=== PATIENT | female | born 1975 | race African-American/Black ===

== ENCOUNTER 2017-07-31 08:04 | Emergency (ER) | payer OTHER ==
[~2017-07-31] VITALS: Ht 167.6 cm; Wt 72.6 kg
[~2017-07-31 08:04] MED LIST: AZIT500T2 PO; METR500T8 PO; NAPR500T4 PO; NICO1PAT2 TD; PROVENTIL HFA6.7 GM IH; TRAZ50TA15 PO; VENTOLIN HFA18 GM INH
[2017-07-31 08:25] VITALS: BP 126/80
--- NOTE | 2017-07-31 08:48 | PHYS DOC ---
Past Medical History Past Medical History: Anxiety, Asthma, Seizure Additional Past Medical Histor: Seasonal rhinitis, PTSD, Chronic bronchitis, CERVICAL STENOSIS Past Surgical History: Tubal ligation, Other Additional Past Surgical Histo: HERNIA REPAIR Alcohol Use: None Drug Use: None Adult General Chief Complaint Chief Complaint: COUGH [facility] HPI Patient is a pleasant 41-year-old -[place] female with history of PTSD, prior seizure disorder who presents with a cough that is nonproductive that is gotten progressively worse over the last 6 days. Patient works in a factory and is noted increased dry cough over the last 2-3 days has now become productive. She has had subjective fevers and chills but nothing measured. She has taken no medications to treat her symptoms. She does complain of bilateral ear discomfort but no hearing loss or tenderness, she has a clear rhinorrhea no sore throat and no neck stiffness. Patient denies any recent travel outside the country or recent anabiotic use. She is a nonsmoker. Review of Systems Review of Systems Constitutional: Subjective fevers and chills nothing measured Eyes: Denies change in visual acuity, redness, or eye pain [] HENT: This patient has had nasal congestion without sore throat Respiratory: She has had a progressive productive cough without shortness of breath Cardiovascular: No additional information not addressed in HPI [] GI: Denies abdominal pain, nausea, vomiting, bloody stools or diarrhea [] : Denies dysuria or hematuria [] Musculoskeletal: Denies back pain or joint pain [] Integument: Denies rash or skin lesions [] Neurologic: Denies headache, focal weakness or sensory changes [] Endocrine: Denies polyuria or polydipsia [] All other systems were reviewed and found to be within normal limits, except as documented in this note. Allergies Allergies Allergies Coded Allergies Type Severity Reaction Last Updated Verified No Known Drug Allergies 05/30/14 No Physical Exam Physical Exam Constitutional: Well developed, well nourished, no acute distress, non-toxic appearance. [] HENT: Normocephalic, atraumatic, bilateral external ears normal, oropharynx moist, mild erythema but no oral exudates, nose normal. [] Eyes: PERRLA, EOMI, conjunctiva normal, no discharge. [] Neck: Normal range of motion, no tenderness, supple, no stridor. No anterior cervical lymphadenopathy[] Cardiovascular:Heart rate regular rhythm, no murmur [] Lungs & Thorax: Bilateral breath sounds clear to auscultation [] Skin: Warm, dry, no erythema, no rash. [] Neurologic: Alert and oriented X 3, normal speech [] Psychologic: Affect normal, judgement normal, mood normal. [] Current Patient Data Vital Signs Vital Signs Date Time Temp Pulse Resp B/P (MAP) Pulse Ox O2 Delivery O2 Flow Rate FiO2 07/31/17 08:25 98.1 100 18 99 Room Air 98.1 EKG EKG [] Radiology/Procedures Radiology/Procedures [] [facility] [address] [place] [address] IMAGING REPORT Signed PATIENT: DARIO GEORGE ACCOUNT: [id number] : 1975 LOCATION: ER AGE: 41 SEX: F EXAM STATUS: REG ER ORD. PHYSICIAN: SHERRI GARCIA MD REASON: cough PROCEDURE: CHEST PA & LATERAL Indication: Cough for one week. Technique: Two-view chest radiograph was obtained. Comparison is from September 21, 2012. Findings: The lungs are clear. The cardiopulmonary silhouette is within normal limits. There is no pleural effusion. The bony structures are intact. Impression: No acute thoracic findings. DICTATED and SIGNED BY: LUDIN RODRIGUEZ MD DATE: 07/31/17 0852 CC: SHERRI GARCIA MD; NO PCP ~ Course & Med Decision Making Course & Med Decision Making Pertinent Labs and Imaging studies reviewed. (See chart for details) []Patient presents with a productive cough and chills and fevers at home nothing measured. Patient will be screened for pneumonia versus URI symptoms. She has no myalgias no headache no neck stiffness doubt meningitis or influenza Patient's chest x-ray does not demonstrate any signs of infection patient is wheezing on exam I'll provide her supportive medications for her URI-like symptoms. Asked to return to her primary care doctor for any continued symptoms if not improved with supportive care. I will also give her a complete off to recuperate from her illness Dragon Disclaimer Dragon Disclaimer This electronic medical record was generated, in whole or in part, using a voice recognition dictation system. Departure Departure Impression: Primary Impression: Cough Additional Impression: URI (upper respiratory infection) Disposition: 01 HOME, SELF-CARE Condition: IMPROVED Referrals: UNKNOWN PCP NAME (PCP) Patient Instructions: Upper Respiratory Infection, Adult Additional Instructions: discharge: I've spoken with the patient and/or caregivers. I've explained the patient's condition, diagnosis and treatment plan based on information available to me at this time. I've answered the patient's and/or caregivers questions and addressed any concerns. The patient and/or caregivers have a good understanding the patient's diagnosis, condition and treatment plan as can be expected at this point. Vital signs have been stabilized. The patient's condition is stable for discharge from the emergency department. The patient will pursue further outpatient evaluation with her primary care provider or other designated consulting physician as outlined in the discharge instructions. Patient and/or caregivers are agreeable to this plan of care and follow-up instructions have been explained in detail. The patient and/or caregivers have received these instructions in written format and expressed understanding of these discharge instructions. The patient and her caregivers are aware that if any significant change in condition or worsening of symptoms should prompt him to immediately return to this of the closest emergency department. If an emergent department is not readily available I would encourage him to call 911. Scripts Naproxen (NAPROSYN) 500 Mg Tablet 1 TAB PO BID, #14 TAB 1 Refill Prov: SHERRI GARCIA MD 07/31/17 Guaifenesin/Dextromethorphan (MUCINEX DM ER 600-30 MG TABLET) 1 Each Tab.er.12h 1 TAB PO PRN Q12HRS, #20 TAB Prov: SHERRI GARCIA MD 07/31/17 Fluticasone Propionate (Flonase Allergy Relief) 9.9 Ml [place].susp 2 SPRAYS NS DAILY for 7 Days, BOTTLE Prov: SHERRI GARCIA MD 07/31/17 Albuterol Sulfate (PROAIR HFA INHALER) 8.5 Gm Hfa.aer.ad 1 PUFF INH PRN Q6HRS Y for SHORTNESS OF BREATH for 5 Days, INHALER 0 Refills Prov: SHERRI GARCIA MD 07/31/17 Problem Qualifiers SHERRI GARCIA MD Jul 31, 2017 08:48
--- NOTE | 2017-07-31 08:56 | RAD ---
Indication: Cough for one week. Technique: Two-view chest radiograph was obtained. Comparison is from September 21, 2012. Findings: The lungs are clear. The cardiopulmonary silhouette is within normal limits. There is no pleural effusion. The bony structures are intact. Impression: No acute thoracic findings.
[2017-07-31] MEDS ORDERED: FLUT9.9S NS (09:12)
[2017-07-31] MEDS ORDERED: NAPR-683 PO (09:12)
[2017-07-31] MEDS ORDERED: GUAI-108 PO (09:12)
[2017-07-31] MEDS ORDERED: PROAIR HFA8.5 GM INH (09:12)
== END 2017-07-31 09:28 | disposition home or self-care (01) ==
LOC: ER 08:04
DX: J06.9 Acute upper respiratory infection, unspecified (principal); F41.9 Anxiety disorder, unspecified; J45.909 Unspecified asthma, uncomplicated; F43.10 Post-traumatic stress disorder, unspecified; G40.909 Epilepsy, unspecified, not intractable, without status epilepticus
CPT/HCPCS: 71020; 99284-25

== ENCOUNTER 2018-01-06 13:38 | Emergency (ER) | payer OTHER ==
[2018-01-06 14:20] LABS: URINE HCG POC HCG NEGATIVE (Negative)
[2018-01-06 14:36] LABS: BILIRUBIN,URINE NEGATIVE (NEG); CLARITY,URINE CLEAR; COLOR,URINE YELLOW; GLUCOSE,URINE NEGATIVE (NEG); NITRITE,URINE NEGATIVE (NEG); PROTEIN,URINE NEGATIVE (NEG-TRACE)
[2018-01-06 14:40] LABS: BASO % 1 % (0-3); EOS % 1 % (0-3); HEMOGLOBIN 13.3 g/dL (12.0-15.5); LYMPH # 1.4 x10^3/uL (1.0-4.8); LYMPH % 55 % (24-48); MEAN CORPUSCULAR HEMOGLOBIN 31 pg (25-35); MEAN CORPUSCULAR HGB CONC 34 g/dL (31-37); MEAN CORPUSCULAR VOLUME 90 fL (79-100); MONO # 0.3 x10^3/uL (0.0-1.1); MONO % 13 % (0-9); NEUT # 0.8 x10^3uL (1.8-7.7); NEUT % 31 % (31-73); PLATELET COUNT 161 x10^3/uL (140-400); RED BLOOD COUNT 4.33 x10^6/uL (3.50-5.40); RED CELL DISTRIBUTION WIDTH 13.4 % (11.5-14.5); WHITE BLOOD COUNT 2.6 x10^3/uL (4.0-11.0)
[2018-01-06 14:41] LABS: ADD MAN DIFF? YES; BARBITURATES NEG (NEG); BENZODIAZEPINES NEG (NEG); CANNABINOIDS POS (NEG); COCAINE NEG (NEG); METHADONE NEG (NEG); OPIATES NEG (NEG); PHENCYCLIDINE POS (NEG)
[2018-01-06 14:42] LABS: AMPHETAMINE/METHAMPHETAMINE NEG (NEG); ETHANOL, URINE NEG (NEG)
[2018-01-06 14:50] LABS: ANION GAP 9 (6-14); BLOOD UREA NITROGEN 8 mg/dL (7-20); BUN/CREATININE RATIO 11 (6-20); CALCIUM 8.5 mg/dL (8.5-10.1); CARBON DIOXIDE 24 mmol/L (21-32); CHLORIDE 105 mmol/L (98-107); CREATININE 0.7 mg/dL (0.6-1.0); GLUCOSE 91 mg/dL (70-99); POTASSIUM 3.6 mmol/L (3.5-5.1); SODIUM 138 mmol/L (136-145)
[2018-01-06 14:51] LABS: ETHANOL < 10 mg/dL (0-10)
[2018-01-06 14:55] LABS: BACTERIA,URINE 0 /HPF (0-FEW); RBC,URINE 0 /HPF (0-2); SQUAMOUS EPITHELIAL CELL,UR MANY /LPF
[2018-01-06 14:56] LABS: ALBUMIN 3.3 g/dL (3.4-5.0); ALBUMIN/GLOBULIN RATIO 0.8 (1.0-1.7); ALK PHOS 66 U/L (46-116); ALT (SGPT) 33 U/L (14-59); AST (SGOT) 18 U/L (15-37); TOTAL BILIRUBIN 0.5 mg/dL (0.2-1.0); TOTAL PROTEIN 7.4 g/dL (6.4-8.2)
[2018-01-06 16:33] LABS: % ATYL 8 % (0-0); % BANDS 3 % (0-9); % LYMPHS 56 % (24-48); % MONOS 7 % (0-10); % SEGS 26 % (35-66); PLT ESTIMATE ADEQUATE (ADEQUATE)
== END 2018-01-06 16:57 | disposition home or self-care (01) ==
LOC: ER 13:38
DX: F44.5 Conversion disorder with seizures or convulsions (principal); R20.2 Paresthesia of skin; F43.10 Post-traumatic stress disorder, unspecified; F41.9 Anxiety disorder, unspecified; J45.909 Unspecified asthma, uncomplicated; F17.210 Nicotine dependence, cigarettes, uncomplicated; F12.10 Cannabis abuse, uncomplicated
CPT/HCPCS: 36415; 70450; 80053; 80307; 81001; 81025; 85007; 85025; 87086; 93005; 99285; G0480

== ENCOUNTER 2018-06-11 06:46 | Emergency (ER) | payer OTHER ==
[~2018-06-11] VITALS: Ht 162.6 cm; Wt 64.0 kg
[~2018-06-11 06:46] MED LIST changes: +FLUT9.9S NS; +GUAI-108 PO; +NAPR-514 PO; +NAPR-683 PO; -NAPR500T4 PO; +PROAIR HFA8.5 GM INH; +TRAZ-85 PO; -TRAZ50TA15 PO
[2018-06-11 07:17] VITALS: BP 134/78
[2018-06-11] MEDS ORDERED: HYDROcodone/APAP 5/325MG 1 TAB TABLET PO ONE (07:30)
[2018-06-11 07:52] LABS: BASO % 1 % (0-3); EOS % 1 % (0-3); HEMOGLOBIN 14.4 g/dL (12.0-15.5); LYMPH # 1.2 x10^3/uL (1.0-4.8); LYMPH % 34 % (24-48); MEAN CORPUSCULAR HEMOGLOBIN 32 pg (25-35); MEAN CORPUSCULAR HGB CONC 35 g/dL (31-37); MEAN CORPUSCULAR VOLUME 90 fL (79-100); MONO # 0.3 x10^3/uL (0.0-1.1); MONO % 8 % (0-9); NEUT % 56 % (31-73); PLATELET COUNT 186 x10^3/uL (140-400); RED BLOOD COUNT 4.54 x10^6/uL (3.50-5.40); RED CELL DISTRIBUTION WIDTH 13.4 % (11.5-14.5); WHITE BLOOD COUNT 3.6 x10^3/uL (4.0-11.0)
[2018-06-11 08:04] LABS: CALCIUM 9.5 mg/dL (8.5-10.1); CREATININE 0.7 mg/dL (0.6-1.0)
[2018-06-11 08:07] LABS: PREG TEST PT QUAL NEGATIVE (NEG)
[2018-06-11 08:10] LABS: ALBUMIN 3.7 g/dL (3.4-5.0); ALBUMIN/GLOBULIN RATIO 0.8 (1.0-1.7); TOTAL BILIRUBIN 0.3 mg/dL (0.2-1.0); TOTAL PROTEIN 8.4 g/dL (6.4-8.2)
[2018-06-11] MEDS ORDERED: IBUPROFEN 600 MG TABLET. PO ONE (09:00)
[2018-06-11] MEDS ORDERED: CYCL10TA2 PO (09:36)
[2018-06-11] MEDS ORDERED: HYDR-2758 PO (09:36)
[2018-06-11] MEDS ORDERED: PRED50TA PO (09:40)
--- NOTE | 2018-06-11 09:53 | RAD ---
Lumbar spine, 3 views, 06/11/2018: HISTORY: Pain radiating down the right leg The lumbar vertebral heights and intervertebral disc spaces are well-maintained. No fracture or dislocation is identified. The paraspinous soft tissues are unremarkable. IMPRESSION: No acute bony abnormality is detected. Electronically signed by: Rey Linares MD (06/11/2018 9:50 AM) [facility]
--- NOTE | 2018-06-11 12:14 | PHYS DOC ---
Past Medical History Past Medical History: Anxiety, Asthma, Seizure, Other Additional Past Medical Histor: chronic pain,PTSD,Chronic bronchitis,CERVICAL/ SPINAL STENOSIS, Past Surgical History: Tubal ligation, Other Additional Past Surgical Histo: HERNIA REPAIR Alcohol Use: None Drug Use: None Adult General Chief Complaint Chief Complaint: LOWER EXT PAIN HPI HPI Patient is a 42 year old female who presents with chronic right leg pain. Patient reports diffuse leg, thigh pain, tenderness today. States she has had intermittent right leg pain from for several years. Pain is worse with palpation , movement. Patient also reports low back pain. Denies recent fall, trauma or repetitive strain injury. Denies motor weakness or loss of sensation of right leg. No bowel or bladder incontinence. No other acute symptoms or complaints. [] Review of Systems Review of Systems Review symptoms as per history of present illness. All other review symptoms are negative.[] All other systems were reviewed and found to be within normal limits, except as documented in this note. Current Medications Current Medications Current Medications Medications (Trade) Dose Ordered Sig/Alex Start Time Stop Time Status Last Admin Dose Admin Acetaminophen/ Hydrocodone Bitart (Lortab 5/325) 1 tab 1X ONCE 06/11/18 07:30 06/11/18 07:31 DC 06/11/18 07:50 1 TAB Ibuprofen (Motrin) 600 mg 1X ONCE 06/11/18 09:00 06/11/18 09:01 DC 06/11/18 09:06 600 MG Allergies Allergies Allergies Coded Allergies Type Severity Reaction Last Updated Verified No Known Drug Allergies 05/30/14 No Physical Exam Physical Exam Constitutional: Well developed, well nourished, no acute distress, non-toxic appearance. [] HENT: Normocephalic, atraumatic, bilateral external ears normal, oropharynx moist, nose normal. [] Eyes: PERRLA, EOMI, conjunctiva normal. [] Neck: Normal range of motion, no tenderness. [] Cardiovascular:Heart rate regular rhythm, no murmur [] Lungs & Thorax: Bilateral breath sounds clear to auscultation [] Abdomen: Bowel sounds normal, soft, no tenderness. [] Skin: Warm, dry, no erythema, no rash. [] Back: No midline spinal tenderness. [] Extremities: No tenderness, no edema. [] Neurologic: Alert and oriented X 3, normal motor function, normal sensory function, no focal deficits noted. [] Psychologic: Affect, anxious. [] Current Patient Data Vital Signs Vital Signs Date Time Temp Pulse Resp B/P (MAP) Pulse Ox O2 Delivery O2 Flow Rate FiO2 06/11/18 07:17 98.6 84 20 134/78 (96) 96 Room Air 98.6 Lab Values Laboratory Tests Test 06/11/18 07:45 White Blood Count 3.6 x10^3/uL (4.0-11.0) L Red Blood Count 4.54 x10^6/uL (3.50-5.40) Hemoglobin 14.4 g/dL (12.0-15.5) Hematocrit 41.0 % (36.0-47.0) Mean Corpuscular Volume 90 fL (79-100) Mean Corpuscular Hemoglobin 32 pg (25-35) Mean Corpuscular Hemoglobin Concent 35 g/dL (31-37) Red Cell Distribution Width 13.4 % (11.5-14.5) Platelet Count 186 x10^3/uL (140-400) Neutrophils (%) (Auto) 56 % (31-73) Lymphocytes (%) (Auto) 34 % (24-48) Monocytes (%) (Auto) 8 % (0-9) Eosinophils (%) (Auto) 1 % (0-3) Basophils (%) (Auto) 1 % (0-3) Neutrophils # (Auto) 2.0 x10^3uL (1.8-7.7) Lymphocytes # (Auto) 1.2 x10^3/uL (1.0-4.8) Monocytes # (Auto) 0.3 x10^3/uL (0.0-1.1) Eosinophils # (Auto) 0.0 x10^3/uL (0.0-0.7) Basophils # (Auto) 0.0 x10^3/uL (0.0-0.2) D-Dimer (Monique) 0.27 ug/mlFEU (0.00-0.50) Sodium Level 140 mmol/L (136-145) Potassium Level 4.0 mmol/L (3.5-5.1) Chloride Level 104 mmol/L (98-107) Carbon Dioxide Level 28 mmol/L (21-32) Anion Gap 8 (6-14) Blood Urea Nitrogen 10 mg/dL (7-20) Creatinine 0.7 mg/dL (0.6-1.0) Estimated GFR (Cockcroft-Gault) 111.0 BUN/Creatinine Ratio 14 (6-20) Glucose Level 94 mg/dL (70-99) Calcium Level 9.5 mg/dL (8.5-10.1) Total Bilirubin 0.3 mg/dL (0.2-1.0) Aspartate Amino Transferase (AST) 19 U/L (15-37) Alanine Aminotransferase (ALT) 39 U/L (14-59) Alkaline Phosphatase 73 U/L (46-116) Creatine Kinase 183 U/L (26-192) Total Protein 8.4 g/dL (6.4-8.2) H Albumin 3.7 g/dL (3.4-5.0) Albumin/Globulin Ratio 0.8 (1.0-1.7) L Serum Test, Qualitative Negative (NEG) Laboratory Tests 06/11/18 07:45 Laboratory Tests 06/11/18 07:45 EKG EKG [] Radiology/Procedures Radiology/Procedures [XR Lumbar spine: No acute bony abnormality per radiology report.] Course & Med Decision Making Course & Med Decision Making Pertinent Labs and Imaging studies reviewed. (See chart for details) [A patient of chronic right leg pain without neurologic deficit. Etiology unclear, but pain does appear to have radicular component. Recommend supportive care with PCP follow-up. Dragon Disclaimer Dragon Disclaimer This electronic medical record was generated, in whole or in part, using a voice recognition dictation system. Departure Departure Impression: Primary Impression: Lumbar radicular pain Disposition: 01 HOME, SELF-CARE Condition: GOOD Patient Instructions: Lumbosacral Radiculopathy Additional Instructions: Please take pain medication, muscle relaxants, anti-inflammatories as prescribed. Follow-up with your EPCP in 2-3 days for reevaluation. Scripts Prednisone (PREDNISONE) 50 Mg Tablet 1 TAB PO DAILY, #5 TAB Prov: MIKEY SCHMITT DO 06/11/18 Cyclobenzaprine Hcl (CYCLOBENZAPRINE HCL) 10 Mg Tablet 1 TAB PO TID, #30 TAB Prov: MIKEY SCHMITT DO 06/11/18 Hydrocodone Bit/Acetaminophen (HYDROCODONE-APAP 5-325 ) 1 Each Tablet 1 TAB PO PRN Q6HRS PRN for PAIN for 5 Days, TAB 5 Refills Prov: MIKEY SCHMITT DO 06/11/18 MIKEY SCHMITT DO Jun 11, 2018 12:14
== END 2018-06-11 10:36 | disposition home or self-care (01) ==
LOC: ER 06:46
DX: M54.16 Radiculopathy, lumbar region (principal); G89.29 Other chronic pain; M79.604 Pain in right leg; J45.909 Unspecified asthma, uncomplicated; M48.02 Spinal stenosis, cervical region; F43.10 Post-traumatic stress disorder, unspecified; Z98.890 Other specified postprocedural states; Z98.51 Tubal ligation status
CPT/HCPCS: 36415; 72100; 80053; 82550; 84703; 85025; 85379; 99285-25

== ENCOUNTER 2019-10-26 01:14 | Emergency (ER) | payer MEDICAID ==
[~2019-10-26] VITALS: Ht 167.6 cm; Wt 65.9 kg
[~2019-10-26 01:14] MED LIST changes: +ALBU2.5V8 INH; +CYCL10TA2 PO; +HYDR-2761 PO; +METR-34 PO; -METR500T8 PO; +POLY10DR LEFTEYE; +PRED50TA PO; -PROAIR HFA8.5 GM INH; +TRAZ-118 PO; -TRAZ-85 PO
[2019-10-26 02:20] VITALS: BP 166/96
[2019-10-26] MEDS ORDERED: SULF1TAB24 PO (02:51)
[2019-10-26] MEDS ORDERED: CEPH500C PO (02:51)
--- NOTE | 2019-10-26 02:51 | PHYS DOC ---
Past Medical History Past Medical History: Anxiety, Asthma, Seizure, Other Additional Past Medical Histor: chronic pain,PTSD,Chronic bronchitis,CERVICAL/SPINAL STENOSIS, Past Surgical History: Tubal ligation, Other Additional Past Surgical Histo: HERNIA REPAIR Smoking Status: Current Every Day Smoker Alcohol Use: None Drug Use: None Adult General Chief Complaint Chief Complaint: INSECT BITE HPI HPI Patient is a 44 year old AA female who presents to the emergency department with complaints of a red, tender area to her right anterior thigh for the last 5 days. Patient states she thinks there is a boil in her leg. She denies any fever, injury, numbness, tingling, or weakness of the affected extremity. She denies any itching, drainage, or bleeding from the site. Patient currently rates her pain a 7 out of 10 on the pain scale, she denies any alleviating factors. Review of Systems Review of Systems Complete ROS is negative unless otherwise noted in HPI. Allergies Allergies Allergies Coded Allergies Type Severity Reaction Last Updated Verified No Known Drug Allergies 05/30/14 No Physical Exam Physical Exam See Above Constitutional: Well developed, well nourished, no acute distress, non-toxic appearance. [] HENT: Normocephalic, atraumatic, bilateral external ears normal, nose normal. [] Eyes: PERRLA, EOMI, conjunctiva normal, no discharge. [] Neck: Normal range of motion, no stridor. [] Cardiovascular:Heart rate regular rhythm Lungs & Thorax: Respirations even and unlabored, no retractions, no respiratory distress [] Skin: Warm, dry, 4 cm diameter area of erythema and warmth noted to the right anterior thigh with central punctum, no fluctuance, no drainage, consistent with cellulitis and infected bite Extremities: No cyanosis, ROM intact, no edema. [] Neurologic: Alert and oriented X 3, no focal deficits noted. [] Psychologic: Affect normal, judgement normal, mood normal. [] EKG EKG [] Radiology/Procedures Radiology/Procedures The affected site was cleansed with an alcohol wipe and a 20-gauge needle was inserted in an attempt to drain a possible abscess, there was no pus drainage. Advised the patient that this is likely cellulitis and there is no need for incision and drainage, patient in agreement after no pus was drained. [] Course & Med Decision Making Course & Med Decision Making Pertinent Labs and Imaging studies reviewed. (See chart for details) [] Dragon Disclaimer Dragon Disclaimer This electronic medical record was generated, in whole or in part, using a voice recognition dictation system. Departure Departure Impression: Primary Impression: Infected insect bite of right leg Additional Impression: Cellulitis of right thigh Disposition: 01 HOME, SELF-CARE Condition: STABLE Referrals: NO PCP (PCP) Patient Instructions: Cellulitis, [id number], Insect Bite, [id number] Additional Instructions: Fill the prescription(s) and use as directed. You may take tylenol or ibuprofen as needed for pain. Apply warm, moist packs to the area several times each day to help decrease discomfort. Follow up with your primary care doctor site rechecked in 2 days. Return to the ER sooner if your symptoms worsen or you develop a fever. Scripts Cephalexin (CEPHALEXIN) 500 Mg Capsule 2 CAP PO BID for 7 Days, #28 CAP 0 Refills Prov: GRETA RAMIREZ APRN 10/26/19 Sulfamethoxazole/Trimethoprim (BACTRIM DS TABLET) 1 Each Tablet 1 TAB PO BID for 7 Days, #14 TAB 0 Refills Prov: GRETA RAMIREZ APRN 10/26/19 Problem Qualifiers Primary Impression: Infected insect bite of right leg Encounter type: initial encounter Qualified Codes: S80.861A - Insect bite (nonvenomous), right lower leg, initial encounter; L08.9 - Local infection of the skin and subcutaneous tissue, unspecified; W57.XXXA - Bitten or stung by nonvenomous insect and other nonvenomous arthropods, initial encounter GRETA RAMIREZ APRN Oct 26, 2019 02:51
== END 2019-10-26 03:10 | disposition home or self-care (01) ==
LOC: ER 01:14
DX: S80.861A Insect bite (nonvenomous), right lower leg, initial encounter (principal); L08.9 Local infection of the skin and subcutaneous tissue, unspecified; J45.909 Unspecified asthma, uncomplicated; G89.29 Other chronic pain; F17.200 Nicotine dependence, unspecified, uncomplicated; W57.XXXA Bitten or stung by nonvenomous insect and other nonvenomous arthropods, initial encounter; Y93.89 Activity, other specified; Y92.89 Other specified places as the place of occurrence of the external cause; Y99.8 Other external cause status
CPT/HCPCS: 10060; 99283

== ENCOUNTER 2020-09-30 00:01 | Emergency (ER) | payer MEDICAID ==
[~2020-09-30] VITALS: Ht 172.7 cm; Wt 68.0 kg
[~2020-09-30 00:01] MED LIST changes: +CEPH500C PO; +SULF1TAB24 PO
[2020-09-30 01:07] LABS: BASO % 1 % (0-3); EOS % 1 % (0-3); HEMATOCRIT 39.7 % (36.0-47.0); HEMOGLOBIN 13.6 g/dL (12.0-15.5); LYMPH # 1.3 x10^3/uL (1.0-4.8); LYMPH % 26 % (24-48); MEAN CORPUSCULAR HEMOGLOBIN 31 pg (25-35); MEAN CORPUSCULAR HGB CONC 34 g/dL (31-37); MEAN CORPUSCULAR VOLUME 89 fL (79-100); MONO # 0.4 x10^3/uL (0.0-1.1); MONO % 9 % (0-9); NEUT % 63 % (31-73); PLATELET COUNT 198 x10^3/uL (140-400); RED BLOOD COUNT 4.46 x10^6/uL (3.50-5.40); RED CELL DISTRIBUTION WIDTH 13.5 % (11.5-14.5); WHITE BLOOD COUNT 4.8 x10^3/uL (4.0-11.0)
[2020-09-30 01:13] LABS: BARBITURATES NEG (NEG); BENZODIAZEPINES NEG (NEG); CANNABINOIDS POS (NEG); COCAINE NEG (NEG); METHADONE NEG (NEG); OPIATES NEG (NEG); PHENCYCLIDINE POS (NEG)
--- NOTE | 2020-09-30 01:14 | RAD ---
XR CHEST 1V 09/30/2020 12:52 AM INDICATION: Cough COMPARISON: 07/31/2017 TECHNIQUE: Portable frontal view of the chest is provided. FINDINGS: The cardiomediastinal silhouette is within normal limits. Calcified mediastinal and right hilar lymph nodes are identified. Faint interstitial airspace disease identified at the left lung base. There are no significant pleural effusions. There is no pulmonary vascular congestion. No pneumothora x. No suspicious osseous abnormality. IMPRESSION: Faint interstitial airspace disease identified at the left lung base which could represent developing pulmonary infiltrate. Short-term follow-up radiograph could be of benefit. Electronically signed by: Adriana Miller MD (09/30/2020 1:11 AM) [facility]
[2020-09-30 01:18] LABS: AMPHETAMINE/METHAMPHETAMINE NEG (NEG)
[2020-09-30 01:20] LABS: CALCIUM 9.8 mg/dL (8.5-10.1); CREATININE 1.1 mg/dL (0.6-1.0); POTASSIUM 3.3 mmol/L (3.5-5.1)
[2020-09-30 01:26] LABS: ALBUMIN 3.6 g/dL (3.4-5.0); ALBUMIN/GLOBULIN RATIO 0.8 (1.0-1.7); MAGNESIUM 2.4 mg/dL (1.8-2.4); TOTAL BILIRUBIN 0.2 mg/dL (0.2-1.0)
[2020-09-30 01:35] LABS: ACETAMIN < 2 mcg/ml (10-30); SALIC 3.8 mg/dL (2.8-20.0)
[2020-09-30 02:26] LABS: PREG TEST PT QUAL NEGATIVE (NEG)
--- NOTE | 2020-09-30 02:37 | EKG ---
[facility] [address] [place] [address] Test Date: 2020-09-30 Test Time: 00:45:22 Pat Name: DARIO GEORGE Department: Room: Gender: F [employer] Professional: : 1975 Requested By: SCOT SMART Order Number: [id number] Reading MD: Measurements Intervals [place] Rate: 96 P: 58 NV: 166 QRS: 46 QRSD: 80 T: 11 QT: 352 QTc: 451 Interpretive Statements SINUS RHYTHM LEFT ATRIAL ABNORMALITY ABNORMAL ECG RI6.02 No previous ECG available for comparison
[2020-09-30 03:08] VITALS: BP 143/96
[2020-09-30] MEDS ORDERED: AZIT250T PO (03:14)
--- NOTE | 2020-09-30 03:15 | PHYS DOC ---
Past Medical History Past Medical History: Hypertension Additional Past Medical Histor: chronic pain,PTSD,Chronic bronchitis,CERVICAL/SPINAL STENOSIS, Past Surgical History: Other Additional Past Surgical Histo: unknown Smoking Status: Current Some Day Smoker Alcohol Use: None Drug Use: None Adult General Chief Complaint Chief Complaint: ALTERED MENTAL STATUS [facility] HPI Patient is a 45 year old female with known history of substance abuse presents emergency department for EMS. Patient was reportedly at a neighbor's house and having bizarre behavior. Patient was found to get around him individual's house and was initially evaluated by police. Muscle: The patient was noted to be intoxicated. Patient given stating that she is been complaining of spinning but denies any fevers, chills, fall, head injury, loss conscious. Review of Systems Review of Systems Constitutional: Denies fever or chills [] Eyes: Denies change in visual acuity, redness, or eye pain [] HENT: Denies nasal congestion or sore throat [] Respiratory: Denies cough or shortness of breath [] Cardiovascular: No additional information not addressed in HPI [] GI: Denies abdominal pain, nausea, vomiting, bloody stools or diarrhea [] : Denies dysuria or hematuria [] Musculoskeletal: Denies back pain or joint pain [] Integument: Denies rash or skin lesions [] Neurologic: Denies headache, focal weakness or sensory changes [] Endocrine: Denies polyuria or polydipsia [] All other systems were reviewed and found to be within normal limits, except as documented in this note. Allergies Allergies Allergies Coded Allergies Type Severity Reaction Last Updated Verified No Known Drug Allergies 05/30/14 No Physical Exam Physical Exam Constitutional: Well developed, well nourished, no acute distress, non-toxic appearance. [] HENT: Normocephalic, atraumatic, bilateral external ears normal, oropharynx moist, no oral exudates, nose normal. [] Eyes: PERRLA, EOMI, conjunctiva normal, no discharge. [] Neck: Normal range of motion, no tenderness, supple, no stridor. [] Cardiovascular:Heart rate regular rhythm, no murmur [] Lungs & Thorax: Bilateral breath sounds clear to auscultation [] Abdomen: Bowel sounds normal, soft, no tenderness, no masses, no pulsatile masses. [] Skin: Warm, dry, no erythema, no rash. [] Back: No tenderness, no CVA tenderness. [] Extremities: No tenderness, no cyanosis, no clubbing, ROM intact, no edema. [] Neurologic: Alert and oriented X 3, normal motor function, normal sensory function, no focal deficits noted. [] Psychologic: Affect normal, judgement normal, mood normal. [] Current Patient Data Vital Signs Vital Signs Date Time Temp Pulse Resp B/P (MAP) Pulse Ox O2 Delivery O2 Flow Rate FiO2 09/30/20 00:01 98.4 88 18 128/74 (92) 100 Room Air 98.4 Lab Values Laboratory Tests Test 09/30/20 00:58 09/30/20 02:05 White Blood Count 4.8 x10^3/uL (4.0-11.0) Red Blood Count 4.46 x10^6/uL (3.50-5.40) Hemoglobin 13.6 g/dL (12.0-15.5) Hematocrit 39.7 % (36.0-47.0) Mean Corpuscular Volume 89 fL (79-100) Mean Corpuscular Hemoglobin 31 pg (25-35) Mean Corpuscular Hemoglobin Concent 34 g/dL (31-37) Red Cell Distribution Width 13.5 % (11.5-14.5) Platelet Count 198 x10^3/uL (140-400) Neutrophils (%) (Auto) 63 % (31-73) Lymphocytes (%) (Auto) 26 % (24-48) Monocytes (%) (Auto) 9 % (0-9) Eosinophils (%) (Auto) 1 % (0-3) Basophils (%) (Auto) 1 % (0-3) Neutrophils # (Auto) 3.0 x10^3/uL (1.8-7.7) Lymphocytes # (Auto) 1.3 x10^3/uL (1.0-4.8) Monocytes # (Auto) 0.4 x10^3/uL (0.0-1.1) Eosinophils # (Auto) 0.0 x10^3/uL (0.0-0.7) Basophils # (Auto) 0.0 x10^3/uL (0.0-0.2) Sodium Level 143 mmol/L (136-145) Potassium Level 3.3 mmol/L (3.5-5.1) L Chloride Level 105 mmol/L (98-107) Carbon Dioxide Level 23 mmol/L (21-32) Anion Gap 15 (6-14) H Blood Urea Nitrogen 17 mg/dL (7-20) Creatinine 1.1 mg/dL (0.6-1.0) H Estimated GFR (Cockcroft-Gault) 65.0 BUN/Creatinine Ratio 15 (6-20) Glucose Level 126 mg/dL (70-99) H Calcium Level 9.8 mg/dL (8.5-10.1) Magnesium Level 2.4 mg/dL (1.8-2.4) Total Bilirubin 0.2 mg/dL (0.2-1.0) Aspartate Amino Transferase (AST) 25 U/L (15-37) Alanine Aminotransferase (ALT) 38 U/L (14-59) Alkaline Phosphatase 102 U/L (46-116) Total Protein 8.0 g/dL (6.4-8.2) Albumin 3.6 g/dL (3.4-5.0) Albumin/Globulin Ratio 0.8 (1.0-1.7) L Salicylates Level 3.8 mg/dL (2.8-20.0) Salicylate Last Dose Date Unknown Salicylate Last Dose Time Unknown Urine Opiates Screen Neg (NEG) Urine Methadone Screen Neg (NEG) Acetaminophen Level < 2 mcg/ml (10-30) L Acetaminophen Last Dose Date Unknown Acetaminophen Last Dose Time Unknown Urine Barbiturates Neg (NEG) Urine Phencyclidine Screen Pos (NEG) Urine Amphetamine/Methamphetamine Neg (NEG) Urine Benzodiazepines Screen Neg (NEG) Urine Cocaine Screen Neg (NEG) Urine Cannabinoids Screen Pos (NEG) Urine Ethyl Alcohol Neg (NEG) Serum Test, Qualitative Negative (NEG) Laboratory Tests 09/30/20 00:58 Laboratory Tests 09/30/20 00:58 EKG EKG [] Radiology/Procedures Radiology/Procedures [] Course & Med Decision Making Course & Med Decision Making Pertinent Labs and Imaging studies reviewed. (See chart for details) 45-year-old female brought to the emergency department initially for altered mental status and admitted to using PCP. Patient was evaluated for splinting and chest x-ray does demonstrate evidence of possible pneumonia. Will discharge patient with a course of a azithromycin Dragon Disclaimer Dragon Disclaimer This electronic medical record was generated, in whole or in part, using a voice recognition dictation system. Departure Departure Impression: Primary Impression: Intoxication by drug Additional Impression: CAP (community acquired pneumonia) Disposition: 01 DC HOME SELF CARE/HOMELESS Condition: GOOD Referrals: NO PCP (PCP) Patient Instructions: Pneumomediastinum Additional Instructions: EMERGENCY DEPARTMENT GENERAL DISCHARGE INSTRUCTIONS Thank you for coming to [facility] Emergency Department (ED) today and trusting us with you care. We trust that you had a positive experience in our Emergency Department. If you wish to speak to the department management, you may call the Director at [phone]. YOUR FOLLOW UP INSTRUCTIONS ARE FOLLOWS: 1. Do you have a private Doctor? If you do not have a private doctor, please ask for a resource list of physicians or clinics that may be able to assist you with follow up care. 2. The Emergency Physicain has interpreted your x-rays. The X-Ray specialist will also review them. If there is a change in the findings, you will be notified in 48 hours when at all possible. 3. A lab test or culture has been done, your results will be reviewed and you will be notified if you need a change in treatment. ADDITIONAL INSTRUCTIONS AND INFORMATION: 1. Your care today has been supervised by a physician who is specially trained in emergency care. Many problems require more than one evaluation for a complete diagnosis and treatment. We recommend that you schedule your follow up appointment as r ecommended to ensure complete treatment of you illness or injury. If you are unable to obtain follow up care and continue to have a problem, or if your condition worsens, we recommend that you return to the ED. 2. We are not able to safely determine your condition over the phone nor are we able to give sound medical advice over the phone. For these safety reasons, if you call for medical advice we will ask you to come to the ED for further evaluation. 3. If you have any questions regarding these discharge instructions please call the ED at [phone]. SAFETY INFORMATION: In the interest of safety, wellness, and injury prevention; we encourage you to wear your sealbelt, if you smoke; quite smoking, and we encourage family to use a protective helmet for bicycling and other sporting events that present an increased risk for head injury. IF YOUR SYMPTOMS WORSEN OR NEW SYMPTOMS DEVELOP, OR YOU HAVE CONCERNS ABOUT YOUR CONDITION; OR IF YOUR CONDITION WORSENS WHILE YOU ARE WAITING FOR YOUR FOLLOW UP APPOINTMENT; EITHER CONTACT YOUR PRIMARY CARE DOCTOR, THE PHYSICIAN WHOSE NAME AND NUMBER YOU WERE GIVEN, OR RETURN TO THE ED IMMEDIATELY. Scripts Azithromycin (ZITHROMAX) 250 Mg Tablet 1 PKG PO UD, #6 TAB Prov: SCOT SMART MD 09/30/20 Problem Qualifiers SCOT SMART MD Sep 30, 2020 03:15
== END 2020-09-30 03:22 | disposition home or self-care (01) ==
LOC: ER 00:01
DX: J18.9 Pneumonia, unspecified organism (principal); T40.995A Adverse effect of other psychodysleptics [hallucinogens], initial encounter; G89.29 Other chronic pain; I10 Essential (primary) hypertension; F17.200 Nicotine dependence, unspecified, uncomplicated; F43.10 Post-traumatic stress disorder, unspecified; Y92.89 Other specified places as the place of occurrence of the external cause
CPT/HCPCS: 36415; 71045; 80053; 80307; 80329; 83735; 84703; 85025; 93005; 99285-25; G0480

== ENCOUNTER 2021-03-02 18:57 | Emergency (ER) | payer MEDICAID ==
[~2021-03-02] VITALS: Ht 165.1 cm; Wt 72.7 kg
[~2021-03-02 18:57] MED LIST changes: +AZIT250T PO
[2021-03-03 00:09] LABS: BILIRUBIN,URINE NEGATIVE (NEG); CLARITY,URINE CLEAR; COLOR,URINE YELLOW; NITRITE,URINE NEGATIVE (NEG); PH,URINE 6.5 (<5.0-8.0); PROTEIN,URINE NEGATIVE (NEG-TRACE); UROBILINOGEN,URINE 0.2 mg/dL (0.2 mg/dL)
[2021-03-03 00:14] LABS: BACTERIA,URINE 0 /HPF (0-FEW); RBC,URINE OCC /HPF (0-2); WBC,URINE OCC /HPF (0-4)
[2021-03-03 00:15] LABS: BARBITURATES NEG (NEG); BENZODIAZEPINES NEG (NEG); CANNABINOIDS NEG (NEG); COCAINE NEG (NEG); METHADONE NEG (NEG); OPIATES NEG (NEG); PHENCYCLIDINE POS (NEG)
[2021-03-03 00:24] LABS: AMPHETAMINE/METHAMPHETAMINE NEG (NEG)
--- NOTE | 2021-03-03 00:49 | PHYS DOC ---
Past Medical History Past Medical History: Hypertension Additional Past Medical Histor: chronic pain,PTSD,Chronic bronchitis,CERVICAL/SPINAL STENOSIS, Past Surgical History: Other Additional Past Surgical Histo: unknown Smoking Status: Current Some Day Smoker Alcohol Use: None Drug Use: None General Adult EDM: Chief Complaint: VAGINAL PROBLEM HPI: HPI: 45-year-old female past medical history of chronic pain, PCP use, PTSD and HTN, presents to the ed with c/o "I have irregular periods and my urine color wasn't right." Patient initially stated that when she pain she had a white pus coming out of the, later tells myself she had pink/purple urine earlier today that has resolved. RN saw red spot on pad. Patient states she was concerned because she has irregular menses and saw what she thought was blood when she peed, states her urine is the normal yellow color now. Cannot recall her last menstrual period. Denies any vaginal bleeding, abnormal vaginal discharge itching or odor, dysuria, hematuria, flank pain, fever chills, nausea or vomiting, lower abdominal or pelvic pain, denies any back pain. Denies drug use including thc or pcp. Review of Systems: Review of Systems: Constitutional: Denies fever or chills. [] Eyes: Denies change in visual acuity. [] HENT: Denies nasal congestion or sore throat. [] Respiratory: Denies cough or shortness of breath. [] Cardiovascular: Denies chest pain or edema. [] GI: Denies abdominal pain, nausea, vomiting, : Denies dysuria or urgency Musculoskeletal: Denies back pain or leg pain Integument: Denies rash or diaphoresis Neurologic: Denies headache, focal weakness or sensory changes. [] Psychiatric: Denies depression or anxiety or visual or auditory hallucinations Heart Score: C/O Chest Pain: No Risk Factors: Risk Factors: DM, Current or recent (<one month) smoker, HTN, HLP, family histo ry of CAD, obesity. Risk Scores: Score 0 - 3: 2.5% MACE over next 6 weeks - Discharge Home Score 4 - 6: 20.3% MACE over next 6 weeks - Admit for Clinical Observation Score 7 - 10: 72.7% MACE over next 6 weeks - Early Invasive Strategies Allergies: Allergies: Allergies Coded Allergies Type Severity Reaction Last Updated Verified No Known Drug Allergies 05/30/14 No Physical Exam: PE: Constitutional: Well developed, well nourished, no acute distress/calm, non- toxic appearance. HENT: Normocephalic, atraumatic, glassy eyes but no injection or proptosis Eyes: EOMI, conjunctiva normal, no discharge. Neck: Normal range of motion, supple, Cardiovascular: S1/2 present, regular rhythm Lungs & Thorax: Speaking in full sentences, bilateral equal chest rise, no tachy pnea or increased work of breathing Abdomen: soft, no tenderness or distention Skin: Warm, dry, no erythema, no rash. [] Back: No tenderness, no CVA tenderness. [] Extremities: No tenderness, no cyanosis, Neurologic: Alert and oriented X 3, normal motor function, normal sensory function, no focal deficits noted. [] Psychologic: Affect normal, judgement -thought processing mildly scattered but has significant capacity-I reviewed (read) RN summary notes to patient, mood normal. [] Current Patient Data: Labs: Laboratory Tests Test 03/02/21 23:55 03/02/21 23:58 Urine Collection Type U cath Urine Color Yellow Urine Clarity Clear Urine pH 6.5 (<5.0-8.0) Urine Specific [place] <=1.005 (1.000-1.030) Urine Protein Negative mg/dL (NEG-TRACE) Urine Glucose (UA) Negative mg/dL (NEG) Urine Ketones (Stick) Negative mg/dL (NEG) Urine Blood Negative (NEG) Urine Nitrite Negative (NEG) Urine Bilirubin Negative (NEG) Urine Urobilinogen Dipstick 0.2 mg/dL (0.2 mg/dL) Urine Leukocyte Esterase Negative (NEG) Urine RBC Occ /HPF (0-2) Urine WBC Occ /HPF (0-4) Urine Squamous Epithelial Cells Mod /LPF Urine Bacteria 0 /HPF (0-FEW) Urine Opiates Screen Neg (NEG) Urine Methadone Screen Neg (NEG) Urine Barbiturates Neg (NEG) Urine Phencyclidine Screen Pos (NEG) Urine Amphetamine/Methamphetamine Neg (NEG) Urine Benzodiazepines Screen Neg (NEG) Urine Cocaine Screen Neg (NEG) Urine Cannabinoids Screen Neg (NEG) Urine Ethyl Alcohol Neg (NEG) POC Urine HCG, Qualitative Hcg negative (Negative) Vital Signs: Vital Signs Date Time Temp Pulse Resp B/P (MAP) Pulse Ox O2 Delivery O2 Flow Rate FiO2 03/02/21 23:59 97.9 84 20 147/101 (107) 99 Room Air 97.9 EKG: EKG: [] Radiology/Procedures: Radiology/Procedures: [] Course & Med Decision Making: Course & Med Decision Making Pertinent Labs and Imaging studies reviewed. (See chart for details) Concern for possible blood in urine or abnormal vaginal bleeding -symptoms have resolved. Will discharge home with strict ED return precautions were given for pain, UTI symptoms, fever, worsening pain. Encouraged urgent outpatient follow- up with PMD and [facility] SPECIALIST. Life-threatening processes were considered but are low suspicion at this time, given history, physical exam and ED workup. Pt was educated on all prescription medications and adverse effects. All patient's questions were answered and pt was stable at time of discharge. Life/limb-threatening differential includes but is not limited to, ectopic , sepsis/infection (endometritis, sti/pid, cystitis, pyelonephritis, Celeste's gangrene or necrotizing fasciitis, abscess), ovarian torsion, ruptured hemorrhagic ovarian cyst, endometriosis, ureterolithiasis, thrombophlebitis, hemorrhage/DIC, organ prolapse, abdominal aortic aneurysm, mesenteric ischemia, neoplasm, bowel obstruction or surgical abdomen. I have spoken with the patient and/or caregivers. I explained the patient's condition, diagnoses and treatment plan based on the information available to me at this time. I have answered the patient and/or caregiver's questions and addressed any concerns. The patient and/or caregivers have a good understanding of patient's diagnosis, condition and treatment plan as can be expected at this point. Vital signs have been stable. Patient's condition is stable and appropriate for discharge from the emergency department. Patient will pursue further outpatient evaluation with primary care physician or other designated or consulting physician as outlined in the discharge instructions. The patient and/or caregivers are agreeable to this plan of care and follow-up instructions have been explained in detail. The patient and/or caregivers have received these instructions in written form and have expressed an understanding of the discharge instructions. The patient and/or caregivers are aware that any significant change of condition or worsening of symptoms shou ld prompt immediate return to this or the closest emergency department or call to 911. Joey Disclaimer: Joey Disclaimer: This electronic medical record was generated, in whole or in part, using a voice recognition dictation system. Departure Departure Impression: Primary Impression: Abnormal finding in urine Disposition: HOME / SELF CARE / HOMELESS Condition: STABLE Referrals: NO PCP (PCP) Follow-up with your primary care physician this week or Follow-up with your primary care physician in 24 to 48 hours OR FOLLOW UP WITH FAMILY MEDICINE: [address] [place], [place] Patient Instructions: Urinalysis Test Additional Instructions: FOLLOW UP WITH [facility]PERIENCE SPECIALIST: FOR DEFINITIVE MANAGEMENT [facility] Ob[facility]etrics [facility] Gynecology [address], [address] [place] [address] EMERGENCY DEPARTMENT GENERAL DISCHARGE INSTRUCTIONS Thank you for coming to [facility] Emergency Department (ED) today and trusting us with you care. We trust that you had a positive experience in our Emergency Department. If you wish to speak to the department management, you may call the Director at [phone]. YOUR FOLLOW UP INSTRUCTIONS ARE FOLLOWS: 1. Do you have a private Doctor? If you do not have a private doctor, please ask for a resource list of physicians or clinics that may be able to assist you with follow up care. 2. The Emergency Physicain has interpreted your x-rays. The X-Ray specialist will also review them. If there is a change in the findings, you will be notified in 48 hours when at all possible. 3. A lab test or culture has been done, your results will be reviewed and you will be notified if you need a change in treatment. ADDITIONAL INSTRUCTIONS AND INFORMATION: 1. Your care today has been supervised by a physician who is specially trained in emergency care. Many problems require more than one evaluation for a complete diagnosis and treatment. We recommend that you schedule your follow up appointment as recommended to ensure complete treatment of you illness or injury. If you are unable to obtain follow up care and continue to have a problem, or if your condition worsens, we recommend that you return to the ED. 2. We are not able to safely determine your condition over the phone nor are we able to give sound medical advice over the phone. For these safety reasons, if you call for medical advice we will ask you to come to the ED for further evaluation. 3. If you have any questions regarding these discharge instructions please call the ED at [phone]. SAFETY INFORMATION: In the interest of safety, wellness, and injury prevention; we encourage you to wear your sealbelt, if you smoke; quite smoking, and we encourage family to use a protective helmet for bicycling and other sporting events that present an increased risk for head injury. IF YOUR SYMPTOMS WORSEN OR NEW SYMPTOMS DEVELOP, OR YOU HAVE CONCERNS ABOUT YOUR CONDITION; OR IF YOUR CONDITION WORSENS WHILE YOU ARE WAITING FOR YOUR FOLLOW UP APPOINTMENT; EITHER CONTACT YOUR PRIMARY CARE DOCTOR, THE PHYSICIAN WHOSE NAME AND NUMBER YOU WERE GIVEN, OR RETURN TO THE ED IMMEDIATELY. [facility] DO Mar 03, 2021 00:48
[2021-03-03 01:09] VITALS: BP 149/92
== END 2021-03-03 01:10 | disposition home or self-care (01) ==
LOC: ER 18:57
DX: R82.90 Unspecified abnormal findings in urine (principal); I10 Essential (primary) hypertension; F17.200 Nicotine dependence, unspecified, uncomplicated; G89.29 Other chronic pain
CPT/HCPCS: 80307; 81001; 81025; 99285-25